=== PATIENT | male | born 1955 | race Hispanic/Latino ===

== ENCOUNTER 2025-02-12 08:53 | Day surgery (SDC) | payer MEDICARE ==
[~2025-02-12] VITALS: Ht 167.6 cm; Wt 82.0 kg
[2025-02-12] VITALS (8 sets, daily range): BP systolic 117–164; BP diastolic 62–93
[~2025-02-12 08:53] MED LIST: CEFAZOLIN SODIUM 2 GM in SODIUM CHLORIDE 0.9% 100 ML IV SCH; DULOXETINE HCL 30 MG CAP PO ONE; GABAPENTIN 600 MG TAB PO SCH; IBLOOD GLUCOSE TEST STRIP 1 EA TEST VI PRN; JARDIANCE25 MG PO; LACTATED RINGER'S 1,000 ML IV SCH; LIDOCAINE HCL 1% 5 ML SDV INJ ONE; LIDOCAINE HCL 2% 5 ML SDV ONE; LIPITOR40 MG PO; LISINOPRIL10 MG PO; OMEPRAZOLE20 MG PO; OXYCODONE HCL 5 MG TAB PO SCH; PANTOPRAZOLE SODIUM 40 MG TABEC PO SCH; PROTONIX40 M1 PO; ROPIVACAINE IN 0.9% SOD CHL/PF 545 ML ELS.PMP.HR IRRIGATION SCH; Ropivacaine HCl 0.5% 30 ML VIAL ONE; Ropivacaine HCl 20 MG/10 ML AMP ONE
[2025-02-12] MEDS ORDERED: GLYCOPYRROLATE 1 MG/5 ML MDV ONE (10:16)
[2025-02-12] MEDS ORDERED: fentaNYL citrate 100 MCG/2 ML VIAL ONE (10:25)
[2025-02-12] MEDS ORDERED: ACETAMINOPHEN 1,000 MG/100 ML VIAL ONE (10:41)
[2025-02-12] MEDS ORDERED: KETOROLAC TROMETHAMINE 30 MG/ML VIAL ONE (10:42)
[2025-02-12] MEDS ORDERED: NALOXONE HCL 0.4 MG SYR IV PRN (10:45)
[2025-02-12] MEDS ORDERED: IBLOOD GLUCOSE TEST STRIP 1 EA TEST VI PRN (10:45)
[2025-02-12] MEDS ORDERED: fentaNYL citrate 50 MCG/ML SDV IV PRN (10:45)
[2025-02-12] MEDS ORDERED: HYDROmorphone HCL 1 MG/ML SYR IV PRN (10:45)
[2025-02-12] MEDS ORDERED: KETOROLAC TROMETHAMINE 30 MG/ML VIAL IV PRN (11:30)
[2025-02-12] MEDS ORDERED: OXYCODONE HCL 5 MG TAB PO PRN (11:30)
[2025-02-12] MEDS ORDERED: CEFUROXIME500 MG PO (11:38)
[2025-02-12] MEDS ORDERED: SENNA LAX8.6 MG PO (11:38)
[2025-02-12] MEDS ORDERED: ACETAMINOPHEN500 MG PO (11:38)
[2025-02-12] MEDS ORDERED: OXYCODONE HCL5 M1 PO (11:38)
--- NOTE | 2025-02-12 11:48 | NUR ---
02/12/25 1148 Trena Heller 1141: PT ARRIVES TO PACU WITH ORAL AIRWAY IN PLACE. 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
--- NOTE | 2025-02-12 12:14 | NUR ---
PT ARRIVES TO DS FROM PACU VIA STRETCHER. PT REPORTS NO PAIN AT THIS TIME. PT ON RA W/O2 >90%, RESPIRATIONS EVEN AND UNLABORED, NO SIGNS OF DISTRESS AT THIS TIME. REPORT RECEIVED FROM MADDI PEREZ. FAMILY AT BEDSIDE FOR REPORT. NO SIGNS OF BLEEDING AT THIS TIME. CALL LIGHT WITHIN REACH. WATER, CRACKERS, JELLO PROVIDED. PT STATES NO FURTHER NEEDS OR QUESTIONS AT THIS TIME.
--- NOTE | 2025-02-12 12:54 | NUR ---
MARCELA W/PHYSICAL THERAPY IN ROOM W/PT AT THIS TIME.
--- NOTE | 2025-02-12 13:28 | NUR ---
PT BACK TO ROOM FROM PHYSICAL THERAPY, PER MARCELA PT HAS PASSED. LET PT KNOW ONLY REQUIREMENT LEFT TO MEET IS URINE VOID. PT STATES VERBAL UNDERSTANDING AND ATTEMPTS TO URINE VOID. PT ABLE TO URINE VOID 50 ML OF CLEAR/YELLOW URINE. PT BACK TO ROOM AND BS VOLUME OF 515 ML RECORDED. PT STATES NO DISCOMFORT W/BLADDER SCAN PROBE. PT DRINKING FLUIDS, PT WILL TRY AGAIN IN 30 MINUTES. CALL LIGHT WITHIN REACH, LUNCH ORDER PLACED. FAMILY AT BEDSIDE.
--- NOTE | 2025-02-12 14:07 | NUR ---
PT LUNCH ARRIVES AND EATING AT THIS TIME. PT CONTINUING TO DRINK FLUDIS. CALL LIGHT WITHIN REACH. FAMILY AT BEDSIDE. VS AND ASSESSMENT PERFORMED. NO ACUTE CHANGES FROM PREVIOUS ASSESSMENT. PT CONTINUES TO REPORT NO PAIN OR NAUSEA.
--- NOTE | 2025-02-12 14:40 | NUR ---
PT TO BATHROOM FOR ATTEMPT TO URINE VOID. PT ABLE TO VOID 20 MLS CLEAR/YELLOW URINE. PT STATES STILL FEELS LIKE HE HAS TO GO. PT BLADDER SCANNED @1450 FOR VOLUME 580-610 ML. [facility] CALLED AND UPDATED. VO RECEIVED FROM [facility] @1452 FOR 0.8 FLOMAX ORAL AND STRAIGHT CATH. PT AND PT FAMILY UPDATED AT THIS TIME AND AGREEABLE TO PLAN OF CARE. CALL LIGHT WITHIN REACH, PHARMACY CALLED, PT STATES NO FURTHER NEEDS OR QUESTIONS AT THIS TIME.
[2025-02-12] MEDS ORDERED: ACETAMINOPHEN 500 MG TAB PO SCH (15:00)
[2025-02-12] MEDS ORDERED: TAMSULOSIN HCL 0.4 MG CAP PO ONE (15:00)
[2025-02-12] MEDS ORDERED: CEFAZOLIN SODIUM 2 GM in SODIUM CHLORIDE 0.9% 100 ML IV SCH (15:00)
[2025-02-12] MEDS ORDERED: LIDOCAINE 2% VISCOUS 6 ML SYR TOP ONE (15:00)
--- NOTE | 2025-02-12 15:20 | NUR ---
ORAL MED AND IV ANCEF GIVEN (SEE EMAR). STRAIGHT CATH PLACED USING STERILE TECHNIQUE. 550 ML DRAINED FROM BLADDER @1525 AND REMOVED. PT REPORTS NO PAIN OR DISCOMFORT AT THIS TIME. PT AT BEDSIDE FOR STERILE PROCEDURE. PT FAMILY NOW BACK IN ROOM. WATER AT BEDSIDE. CALL LIGHT WITHIN REACH. PT REPORTS NO FURTHER NEEDS OR QUESTIONS AT THIS TIME.
--- NOTE | 2025-02-12 16:40 | NUR ---
IN PT ROOM TO SEE IF PT FEELS URGE TO URINE VOID. PT STATES NO URGE. CALL LIGHT WITHIN REACH. FAMILY AT BEDSIDE.
--- NOTE | 2025-02-12 16:55 | NUR ---
PT BLADDER SCANNED FOR VOLUME OF 72 ML. ASSESSMENT AND VS PERFORMED. PT CONTINUES TO REPORT NO PAIN OR NAUSEA. [facility] CALLED AND UPDATED. VO FOR ADMISSION FOR EXTENDED RECOVERY TO MS. FAMILY UPDATED, AGREEABLE TO PLAN OF CARE.
--- NOTE | 2025-02-12 17:30 | NUR ---
ROOM FOR PT RECEIVED FOR MS RM113.
--- NOTE | 2025-02-12 17:40 | NUR ---
PT TO RM 113 VIA STRETCHER AND PACU STAFF JENNIFER Allison RN. REPORT RECEIVED. PT DENIES PAIN AT THIS TIME, HAS ON Q PUMP AT 4, HAS CRYOCUFF TO L) KNEE, HEEL PROTECTORS IN PLACE, FOOT PUMPS ON. FAMILY AT BEDSIDE. PT HAS SUTURES, DERMABOND, STERI STRIPS, ACTICOAT, ABD, AND CHAGO TO L) KNEE. PT HAS SM AMT OF SANGUANOUS DRAINAGE TO ACTICOAT, OTHERWISE DRY AND INTACT. CALL LIGHT WITHIN REACH.
--- NOTE | 2025-02-12 17:50 | NUR ---
PT TO MS RM 113 FROM . PT STAND/PIVOTS TO BED W/SHAJI RN ASSIST. REPORT GIVEN TO EMPERATRIZ PEREZ. FAMILY PRESENT AT BEDSIDE FOR REPORT. DRESSING VISUALIZED W/EMPERATRIZ PEREZ. PT CONTINUES TO REPORT NO PAIN. BED IN LOWEST POSITION. CALL LIGHT WITHIN REACH. CRYO CUFF, AZUCENA HOSE, FOOT PUMPS, ONQ @ 4, AND HEEL PROTECTORS IN PLACE. PT, PT FAMILY, AND EMPERATRIZ PEREZ REPORT NO FURTHER QUESTIONS OR NEEDS AT THIS TIME.
--- NOTE | 2025-02-12 19:30 | NUR ---
Pt in bed, room air, cpox at bedside, L leg incision covered with monisha wrap. cryocuff to area, tedhose and foot pumps bilat, elevated wtih rolled towels at ankles. no c/o pain. Macanese speacking. Family in room
[2025-02-12] MEDS ORDERED: SENNOSIDES 1 TAB PO SCH (21:00)
--- NOTE | 2025-02-12 22:50 | NUR ---
PT DECLINED VOIDING NEEDS. ENCOURAGED TO GET UP TO BRP. AFTER SEVERAL CUES, GOT UP 1PA/FWW, VOIDED SMALL AMOUNT 50CC DARK YELLOW URINE, BACK TO BED. TOLERATED WELL. IV ABX TO BE STARTED PER ORDERS. PT INSTRUCTED THAT WE MAY BLADDER SCAN FOR RESIDUAL HE HAD NOT VOIDED MUCH. EXPLAINED IN [place], STATED UNDERSTANDING. CRYOCUFF, SCDS AZUCENA HOSE IN PLACE. ROLLED UP TOWELS TO ANKLES, DECLINES NEED FORPAIN MED, Q PUMP IN PLACE, DRESSING INTACT
--- NOTE | 2025-02-12 23:07 | NUR ---
PT BLADDER SCANNED, APPROXIMATELY 250ML URINE PRESENT. PRIMARY RN TO BE UPDATED. PT DENIES FURTHER NEEDS. CALL LIGHT IN REACH. FAMILY RESTING ON COUCH.
[2025-02-13 02:20] VITALS: BP 109/65
[2025-02-13 02:21] VITALS: BP 109/65
--- NOTE | 2025-02-13 02:51 | NUR ---
PT AWAKENS EASILY, ON ROOM AIR, CPOX AT BEDSIDE, COOPERATIVEW TIH VITALS AND ASSESSMENTS. UP TO EDGE OF BED AND STANDING UP, USED URINAL, VOIDED SMALL AMOUNT [id number] COLORED URINE, SLIGHTLY UNSTEADY WITH 2 PEOPLE HELPING AND FWW, BACK TO BED, MEDICATED PER C/O PAIN L KNEE. CRYOCUFF, TEDHOSE, FOOT SCDS IN PLACE, ROLLED UP OWELS UNDE HEELS. WAS BLADDER SCANNED AFTER HE VOIDED 100CC URINE WHICH TOOK SEVERAL MINUTES. VERY SLOW OCASSIONAL FLOW NOTED. BLADDER SCANNED AFTERWARDS AND THE SCAN SHOWED APPROX 247CC LET IN BLADDER. DENIES C/O BLADDER PAIN OR PROBLEMS URINATING, NO C/O PAIN. PT INSTRUCTED THAT WE WOULD GET HIM UP AGAIN BY 0600 AND BLADDER SCANNED AFTERWARDS TO CHECK FOR RESIDUAL, EXPLAINED IN VIETNAMESE, STATED UNDERSTANDING
--- NOTE | 2025-02-13 04:23 | NUR ---
Resting, eyes closed, on room air, cpox at bedside, heel scds, suzette hose, cryocuff in place.
--- NOTE | 2025-02-13 05:44 | OR ---
[facility] [address], [place] [address] Signed DATE OF OPERATION: 02/12/2025 SURGEON: Earl Ash MD PREOPERATIVE DIAGNOSIS: Severe erosive degenerative joint disease, left knee. POSTOPERATIVE DIAGNOSIS: Severe erosive degenerative joint disease, left knee. PROCEDURE PERFORMED: Left total knee arthroplasty with Adolfo. MIXER CRANE OPERATOR: Valentina Ta PA-C. Valentina was present and critical for all portions of procedure. ANESTHESIA: Spinal. BLOOD LOSS: 200 mL. IMPLANTS: [place] Triathlon size 6 with a 14 mm polyethylene and a 38 mm patella. BRIEF HISTORY: Rafael is a 69-year-old gentleman with significant erosive arthritis in his knee. Risks and benefits of operative treatment were discussed with him. He elected to proceed. DESCRIPTION OF PROCEDURE: Once consent was obtained, he was taken to the operating room. After adequate anesthesia, he was placed on the OR table with a hip bump. The leg was prepped and draped in a standard sterile fashion. The knee was approached through a standard anterior midline incision. Skin flaps were developed medially and laterally. The low mid vastus arthrotomy was performed. The patella was mobilized laterally and the infrapatellar fat pad was excised. The MCL was elevated as a sleeve around the posteromedial corner. Anterior horns of menisci were transected. ACL was transected. PCL was left intact. The knee was a little bit tight, so we went ahead and made the patellar cut and removed that. The lateral osteophytes removed, which made exposure a Electronically Signed By: EARL ASH MD 02/13/25 0544 PATIENT NAME: RAFAEL MCMANUS OPERATIVE REPORT DATE OF : 51 REPORT #: [id number] PHYSICIAN: EARL ASH MD PCP: NO PRIMARY CARE PHYSICIAN REPORT IS CONFIDENTIAL AND NOT TO BE RELEASED WITHOUT AUTHORIZATION [facility] [address], [place] [address] Signed lot easier. The computer navigation arrays were then placed in the distal femur and the proximal tibia. The leg was then registered with the computer followed by the fine anatomic points of the knee. The varus and valgus poses were then taken and significant adjustments were made to the position of the prosthesis on the robot. We moved the tibia distally significantly due to the posteromedial erosion. The knee was then balanced and the robot was brought in. The four stray cuts and two angle cuts were made with care taken to protect the MCL and patellar tendons. The bony remnants removed as were any remaining osteophytes. The posterior osteophytes were removed off the back of the femur. No release was performed. The trials were then positioned. Knee was taken from 0-130 degrees with excellent stability. He had 3 degrees of varus. The patella was noted to track well. The patella was sized and drilled at that point for a 38 mm patella. Distal femoral drill holes were completed and the proximal tibia was finished using the keel punch followed by the drill holes. Once this was completed, the trials were removed and the final prosthesis was obtained. Tibia was impacted into position first followed by the polyethylene. The femur was impacted into position and the knee was extended and loaded. The patella was clamped until it was seated flush and was stable. Again, patellar tracking was found to be good. The knee was then washed out with 1 L of Surgiphor followed by normal saline. Periarticular soft tissues were injected with 100 mL ropivacaine Toradol mixture. The On-Q pain pump was percutaneously placed into the adductor canal from the suprapatellar pouch. The arthrotomy was then closed using a combination of #2 FiberWire, #2 Stratafix, subcutaneous tissue with 0 Stratafix and the skin with 3-0. The wound was dressed with Acticoat-7 dressing, ABDs, and Dixon wrap. He tolerated the procedure well. All sponge, needle, and instrument counts correct. Earl Ash MD BA/MODL /[id number] Copies: ~ Electronically Signed By: EARL ASH MD 02/13/25 0544 PATIENT NAME: RAFAEL MCMANUS OPERATIVE REPORT DATE OF : 51 REPORT #: [id number] PHYSICIAN: EARL ASH MD PCP: NO PRIMARY CARE PHYSICIAN REPORT IS CONFIDENTIAL AND NOT TO BE RELEASED WITHOUT AUTHORIZATION
[2025-02-13 06:12] VITALS: BP 135/74
[2025-02-13 06:35] VITALS: BP 135/74
--- NOTE | 2025-02-13 06:36 | NUR ---
Used call light, Up to edge of bed, voided 175 dark yellow pink tinged urine voided this in less than 5 minutes compared to longer times earlier on shift, more at ease, tolerated better. 1PA/FWW back to bed, hob elevated, IS given and return demonstrated done. Q pump in place L knee dressing intact, cryocuff,foot scds and suzette hose in place. how to apply suzette hose explained and demonstrated to son, stated understanding. All cares explained in qatari to this pt by this RN. questions answered to his and familys satisfaction. denies needing pain med.
--- NOTE | 2025-02-13 07:04 | NUR ---
Dr Ash notified of pts urinary retention, low uo, bladder scanning results. no new orders at this time
[2025-02-13] MEDS ORDERED: TAMSULOSIN HCL0.4 MG PO (07:13)
--- NOTE | 2025-02-13 07:33 | NUR ---
VERBAL REPORT RECEIVED FROM ANA ROWE. PT RESTS IN BED, AWAKE AND ALERT. SPOUSE AND SON AT BEDSIDE. TRANSLATION PERFORMED BY SON PER PATIENT PREFERENCE.
--- NOTE | 2025-02-13 08:15 | NUR ---
MED REC COMPLETE
[2025-02-13 08:40] VITALS: BP 115/64
[2025-02-13 08:42] VITALS: BP 115/64
--- NOTE | 2025-02-13 09:25 | NUR ---
Spoke with pt, , and son. Pt is discharging today. Pt was unable to meet criteria for dc after surgery yesterday. Pt denies needs. He was able to complete stairs with PT. Pt has 2 steps into his home. He will go home with his and two adult son that live with him. They deny any further needs. Pts PCP is Dr. Sanchez at the [facility].
--- NOTE | 2025-02-13 09:25 | NUR ---
UR CLINICAL REVIEW: 2 MN FOR VERSALUS-PER BOARD OF EDUCATION SECRETARY MEETS SHORT STAY FOR URINARY RETENTION POST THR MEDICARE EXTENDED STAY 02/12/25 @ 1723 ORDER MATCHES REG NO AUTH REQUIRED PER MEDICARE GUIDELINES DC ORDERS WRITTEN FOR 02/13/25
--- NOTE | 2025-02-13 09:28 | NUR ---
DISCUSSED DISCHARGE INSTRUCTIONS WITH PT, PT'S SPOUSE AND PT'S SON. PT'S SON ACTS TELEVISION ANNOUNCER PER PT'S PREFERENCE. REVIEWED USE OF CRYOCUFF, CARE OF ON-Q PUMP AND DRESSING, ELEVATING HEELS AT HOME, S/SX OF INFECTION, USING THE WALKER FOR AMBULATION AND USE OF TEDS AT HOME. WRITTEN INSTRUCTIONS PROVIDED IN [place]. ALL QUESTIONS ANSWERED. PT DRESSING SELF WITH ASSIST FROM FAMILY.
--- NOTE | 2025-02-13 09:45 | NUR ---
PT DRESSED, USES CALL LIGHT. PT LEAVES UNIT VIA WHEELCHAIR ESCORTED BY GEMMA BASHIR TO PRIVATE CAR DRIVEN BY SON. PT HAS CLOTHES AND DENTURES WITH HIM.
== END 2025-02-13 09:43 | disposition home or self-care (01) ==
LOC: DS 08:53 → MS 17:34 → DS 02-13 09:43
PROVIDERS: ATTEND Specialist
PROC: 3E0T3BZ Introduction of Anesthetic Agent into Peripheral Nerves and Plexi, Percutaneous Approach (ICD-10-PCS; 2025-02-12)
PROC: 3E0T3BZ Introduction of Anesthetic Agent into Peripheral Nerves and Plexi, Percutaneous Approach (ICD-10-PCS; 2025-02-12)
PROC: 0SRD0JZ Replacement of Left Knee Joint with Synthetic Substitute, Open Approach (ICD-10-PCS; principal; 2025-02-12 11:45)
DX: M17.12 Unilateral primary osteoarthritis, left knee (principal); E11.9 Type 2 diabetes mellitus without complications; Z79.84 Long term (current) use of oral hypoglycemic drugs; E78.5 Hyperlipidemia, unspecified; I10 Essential (primary) hypertension; Z79.899 Other long term (current) drug therapy
CPT/HCPCS: 01402; 51798; 64447; 64448; 64454; 73560; 96374; 97110; 97161; A9270; C1713; C1776; J0131; J0688; J1885; J2003; J2405; J2704; J2795; J3010; J7121; J7999